=== PATIENT | female | born 1955 | race Caucasian/White ===

== ENCOUNTER 2020-01-24 14:20 | Inpatient (IN) ==
[2020-01-25] MEDS: *HR* Amiodarone 200 MG TABLET PO SCH (20:42)
[2020-01-26 05:40] LABS: Basophils # 0.1 K/mcL (0.0-0.2); Basophils % 0.9 %; Eosinophils # 0.1 K/mcL (0.0-0.6); Eosinophils % 1.3 %; Hematocrit 30.4 % (35.3-44.9); Hemoglobin 9.5 g/dL (11.5-15.4); Immature Granulocytes % 2.2 % (0-4); Lymphocytes # 1.6 K/mcL (0.6-4.6); Lymphocytes % 14.9 %; Mean Corpuscular HGB Conc 31.3 g/dL (31.6-35.5); Mean Corpuscular Hemoglobin 31.6 pg (28.0-33.3); Mean Platelet Volume 8.9 fL (9.4-12.4); Monocytes % 9.5 %; Neutrophils # 7.6 K/mcL (1.6-8.9); Platelet Count 451 K/mcL (140-400); Red Blood Count 3.01 M/mcL (3.82-4.97); Red Cell Distribution Width 13.2 % (11.5-14.5); Segmented Neutrophils % 71.2 %; White Blood Count 10.6 K/mcL (4.3-11.1)
[2020-01-26 05:52] LABS: BUN/Creatinine Ratio 26 (6-26); Blood Urea Nitrogen 20 mg/dL (8-23); Calcium 8.5 mg/dL (8.6-10.3); Carbon Dioxide 25 mEq/L (23-29); Chloride 104 mEq/L (98-107); Glucose 102 mg/dL (70-105); Osmolality,Calculated 285 (280-300); Potassium 4.1 mEq/L (3.5-5.1); Sodium 136 mEq/L (136-145); eGFR For African Americans > 60 (> 60); eGFR For Non-African Americans > 60 (> 60)
[2020-01-26] MEDS: Aspirin Enteric Coated 81 MG Tablet PO SCH (08:08)
[2020-01-26] MEDS: *HR* Amiodarone 200 MG TABLET PO SCH ×2 (08:08→20:19)
[2020-01-26] MEDS ORDERED: Furosemide 20 MG TABLET PO SCH (09:00)
[2020-01-27] MEDS: Aspirin Enteric Coated 81 MG Tablet PO SCH (07:55)
[2020-01-27] MEDS: *HR* Amiodarone 200 MG TABLET PO SCH ×2 (07:55→21:58)
[2020-01-28] MEDS: Aspirin Enteric Coated 81 MG Tablet PO SCH (10:06)
[2020-01-28] MEDS: *HR* Amiodarone 200 MG TABLET PO SCH ×2 (10:06→19:52)
[2020-01-29 06:21] LABS: Basophils # 0.1 K/mcL (0.0-0.2); Basophils % 0.8 %; Eosinophils # 0.1 K/mcL (0.0-0.6); Eosinophils % 0.8 %; Hematocrit 30.9 % (35.3-44.9); Hemoglobin 9.8 g/dL (11.5-15.4); Immature Granulocytes % 1.2 % (0-4); Lymphocytes # 1.4 K/mcL (0.6-4.6); Lymphocytes % 15.7 %; Mean Corpuscular HGB Conc 31.7 g/dL (31.6-35.5); Mean Corpuscular Hemoglobin 31.4 pg (28.0-33.3); Monocytes # 0.9 K/mcL (0.0-1.3); Monocytes % 10.6 %; Neutrophils # 6.1 K/mcL (1.6-8.9); Platelet Count 443 K/mcL (140-400); Red Blood Count 3.12 M/mcL (3.82-4.97); Segmented Neutrophils % 70.9 %; White Blood Count 8.6 K/mcL (4.3-11.1)
[2020-01-29 06:28] LABS: BUN/Creatinine Ratio 25 (6-26); Blood Urea Nitrogen 17 mg/dL (8-23); Calcium 8.6 mg/dL (8.6-10.3); Carbon Dioxide 25 mEq/L (23-29); Chloride 102 mEq/L (98-107); Glucose 105 mg/dL (70-105); Osmolality,Calculated 280 (280-300); Potassium 4.1 mEq/L (3.5-5.1); Sodium 134 mEq/L (136-145); eGFR For African Americans > 60 (> 60); eGFR For Non-African Americans > 60 (> 60)
[2020-01-29] MEDS: *HR* Amiodarone 200 MG TABLET PO SCH ×2 (08:52→20:54)
[2020-01-29] MEDS: Aspirin Enteric Coated 81 MG Tablet PO SCH (08:52)
[2020-01-30] MEDS: *HR* Amiodarone 200 MG TABLET PO SCH ×2 (09:29→19:37)
[2020-01-30] MEDS: Aspirin Enteric Coated 81 MG Tablet PO SCH (09:29)
[2020-01-31] MEDS: Acetaminophen 325 MG TABLET PO PRN (03:04)
[2020-01-31] MEDS: Aspirin Enteric Coated 81 MG Tablet PO SCH (08:27)
[2020-01-31] MEDS: *HR* Amiodarone 200 MG TABLET PO SCH ×2 (08:27→20:13)
[2020-02-01] MEDS: *HR* Amiodarone 200 MG TABLET PO SCH ×2 (08:05→20:33)
[2020-02-01] MEDS: Aspirin Enteric Coated 81 MG Tablet PO SCH (08:05)
[2020-02-01] MEDS: Furosemide 20 MG TABLET PO SCH (14:39)
[2020-02-01] MEDS ORDERED: *HR* Enoxaparin 100 MG/ML SYRINGE SQ ONE (18:08)
[2020-02-01] MEDS ORDERED: Isovue-370 500 ML BOTTLE IVP ONE (18:25)
[2020-02-01 19:08] LABS: Albumin 3.8 g/dL (3.5-5.7); BUN/Creatinine Ratio 22 (6-26); Blood Urea Nitrogen 17 mg/dL (8-23); Calcium 8.9 mg/dL (8.6-10.3); Carbon Dioxide 27 mEq/L (23-29); Chloride 101 mEq/L (98-107); Glucose 110 mg/dL (70-105); Osmolality,Calculated 284 (280-300); Phosphorous 4.3 mg/dL (2.7-4.5); Potassium 4.2 mEq/L (3.5-5.1); Sodium 136 mEq/L (136-145); eGFR For African Americans > 60 (> 60); eGFR For Non-African Americans > 60 (> 60)
[2020-02-02] MEDS: *HR* Enoxaparin 100 MG/ML SYRINGE SQ SCH ×2 (05:41→18:31)
[2020-02-02 05:42] LABS: Hematocrit 32.4 % (35.3-44.9); Hemoglobin 10.3 g/dL (11.5-15.4); Mean Corpuscular HGB Conc 31.8 g/dL (31.6-35.5); Mean Corpuscular Hemoglobin 31.5 pg (28.0-33.3); Mean Corpuscular Volume 99.1 fL (83.0-100.0); Mean Platelet Volume 8.9 fL (9.4-12.4); Platelet Count 385 K/mcL (140-400); Red Blood Count 3.27 M/mcL (3.82-4.97); Red Cell Distribution Width 12.8 % (11.5-14.5); White Blood Count 7.5 K/mcL (4.3-11.1)
[2020-02-02 05:47] LABS: INR 1.2; Prothrombin Time 14.1 Seconds (9.4-12.1)
[2020-02-02 05:49] LABS: Activated Partial Thrombo Time 35.6 Seconds (26.0-36.0)
[2020-02-02 05:55] LABS: Alanine Aminotransferase 35 Units/L (7-52); Albumin 3.5 g/dL (3.5-5.7); Albumin/Globulin Ratio 1.1 (1.1-2.2); Alkaline Phosphatase 52 Units/L (34-104); Aspartate Amino Transferase 20 Units/L (13-39); BUN/Creatinine Ratio 20 (6-26); Blood Urea Nitrogen 16 mg/dL (8-23); Calcium 8.9 mg/dL (8.6-10.3); Carbon Dioxide 27 mEq/L (23-29); Chloride 102 mEq/L (98-107); Globulin 3.1 g/dL (2.4-3.5); Glucose 93 mg/dL (70-105); Magnesium 2.3 mg/dL (1.6-2.6); Osmolality,Calculated 285 (280-300); Potassium 4.3 mEq/L (3.5-5.1); Sodium 137 mEq/L (136-145); Total Protein 6.6 g/dL (6.4-8.9); eGFR For African Americans > 60 (> 60); eGFR For Non-African Americans > 60 (> 60)
[2020-02-02 06:20] LABS: Bilirubin,Urine Negative (Negative); Blood,Urine Trace-intact (Negative); Clarity,Urine Clear (Clear); Color,Urine Yellow (Yellow); Glucose,Urine (UA) Normal (Normal); Ketones,Urine Negative (Negative); Leukocyte Esterase,Urine Negative (Negative); Nitrite,Urine Negative (Negative); Protein,Urine Negative (Neg-Trace); Specific Gravity,Urine 1.015 (1.010-1.025)
[2020-02-02 06:35] LABS: RBC,Urine 0-3 per hpf (0-3); Squamous Epithelial Cell,Urine Few per lpf (None-Few); WBC,Urine 0-3 per hpf (0-3)
[2020-02-02] MEDS: Aspirin Enteric Coated 81 MG Tablet PO SCH (09:20)
[2020-02-02] MEDS: Furosemide 20 MG TABLET PO SCH (09:21)
[2020-02-02] MEDS: *HR* Amiodarone 200 MG TABLET PO SCH ×2 (09:21→20:53)
[2020-02-02] MEDS ORDERED: Nitroglycerin 0.4 MG TAB.SUBL SL ONE (19:05)
[2020-02-02] MEDS: Mag Hydrox/Al Hydrox/Simeth 30 ML UDC PO PRN (20:53)
[2020-02-03] MEDS: *HR* Enoxaparin 100 MG/ML SYRINGE SQ SCH ×2 (05:21→18:01)
[2020-02-03] MEDS: Aspirin Enteric Coated 81 MG Tablet PO SCH (09:34)
[2020-02-03] MEDS: Acetaminophen 325 MG TABLET PO PRN (09:34)
[2020-02-03] MEDS: Furosemide 20 MG TABLET PO SCH (09:34)
[2020-02-03] MEDS: *HR* Amiodarone 200 MG TABLET PO SCH ×2 (09:34→22:27)
[2020-02-03] MEDS ORDERED: Ketorolac 30 MG/ML VIAL IVP ONE (17:47)
[2020-02-03] MEDS ORDERED: *HR* Warfarin 5 MG TABLET PO SCH (18:00)
[2020-02-04 05:21] LABS: INR 1.2; Prothrombin Time 13.9 Seconds (9.4-12.1)
[2020-02-04] MEDS: *HR* Enoxaparin 100 MG/ML SYRINGE SQ SCH ×2 (06:56→17:19)
[2020-02-04] MEDS: *HR* Amiodarone 200 MG TABLET PO SCH (09:32)
[2020-02-04] MEDS: Aspirin Enteric Coated 81 MG Tablet PO SCH (09:32)
[2020-02-04] MEDS: Furosemide 20 MG TABLET PO SCH (09:33)
[2020-02-04] MEDS ORDERED: Warfarin perPT PO PRN (18:00)
[2020-02-04] MEDS ORDERED: *HR* Warfarin 2.5 MG TABLET PO ONE (18:00)
[2020-02-05] MEDS: *HR* Enoxaparin 100 MG/ML SYRINGE SQ SCH ×2 (05:13→17:55)
[2020-02-05 06:16] LABS: INR 1.2
[2020-02-05] MEDS: Furosemide 20 MG TABLET PO SCH (08:46)
[2020-02-05] MEDS: Aspirin Enteric Coated 81 MG Tablet PO SCH (08:46)
[2020-02-05] MEDS: *HR* Amiodarone 200 MG TABLET PO SCH (08:46)
[2020-02-05] MEDS ORDERED: *HR* Warfarin 3 MG TABLET PO ONE (18:00)
[2020-02-06] MEDS: *HR* Enoxaparin 100 MG/ML SYRINGE SQ SCH ×2 (05:38→17:21)
[2020-02-06 05:47] LABS: Hematocrit 30.4 % (35.3-44.9); Hemoglobin 9.6 g/dL (11.5-15.4); Mean Corpuscular HGB Conc 31.6 g/dL (31.6-35.5); Mean Corpuscular Hemoglobin 30.6 pg (28.0-33.3); Mean Corpuscular Volume 96.8 fL (83.0-100.0); Mean Platelet Volume 9.1 fL (9.4-12.4); Platelet Count 358 K/mcL (140-400); Red Blood Count 3.14 M/mcL (3.82-4.97); Red Cell Distribution Width 12.8 % (11.5-14.5)
[2020-02-06 05:52] LABS: INR 1.2; Prothrombin Time 14.1 Seconds (9.4-12.1)
[2020-02-06 06:03] LABS: BUN/Creatinine Ratio 19 (6-26); Blood Urea Nitrogen 13 mg/dL (8-23); Calcium 8.7 mg/dL (8.6-10.3); Carbon Dioxide 26 mEq/L (23-29); Chloride 104 mEq/L (98-107); Glucose 95 mg/dL (70-105); Magnesium 2.6 mg/dL (1.6-2.6); Osmolality,Calculated 284 (280-300); Potassium 3.9 mEq/L (3.5-5.1); Sodium 137 mEq/L (136-145); eGFR For African Americans > 60 (> 60); eGFR For Non-African Americans > 60 (> 60)
[2020-02-06] MEDS: Aspirin Enteric Coated 81 MG Tablet PO SCH (08:42)
[2020-02-06] MEDS: *HR* Amiodarone 200 MG TABLET PO SCH (08:42)
[2020-02-06] MEDS: Furosemide 20 MG TABLET PO SCH (09:18)
[2020-02-06] MEDS ORDERED: *HR* Warfarin 5 MG TABLET PO ONE (18:00)
[2020-02-07] MEDS: Acetaminophen 325 MG TABLET PO PRN (05:18)
[2020-02-07] MEDS: *HR* Enoxaparin 100 MG/ML SYRINGE SQ SCH ×2 (05:18→16:27)
[2020-02-07 05:38] LABS: INR 1.3; Prothrombin Time 14.4 Seconds (9.4-12.1)
[2020-02-07] MEDS: *HR* Amiodarone 200 MG TABLET PO SCH (08:01)
[2020-02-07] MEDS: Furosemide 20 MG TABLET PO SCH (08:01)
[2020-02-07] MEDS: Aspirin Enteric Coated 81 MG Tablet PO SCH (12:24)
[2020-02-07] MEDS ORDERED: *HR* Warfarin 5 MG TABLET PO ONE (18:00)
[2020-02-08] MEDS: *HR* Enoxaparin 100 MG/ML SYRINGE SQ SCH ×2 (06:07→17:20)
[2020-02-08 07:18] LABS: INR 1.4
[2020-02-08] MEDS: *HR* Amiodarone 200 MG TABLET PO SCH (10:04)
[2020-02-08] MEDS: Furosemide 20 MG TABLET PO SCH (10:04)
[2020-02-08] MEDS: Aspirin Enteric Coated 81 MG Tablet PO SCH (10:04)
[2020-02-08] MEDS ORDERED: *HR* Warfarin 7.5 MG TABLET PO ONE (18:00)
[2020-02-09] MEDS: *HR* Enoxaparin 100 MG/ML SYRINGE SQ SCH ×2 (04:44→16:46)
[2020-02-09 06:49] LABS: INR 1.7; Prothrombin Time 19.1 Seconds (9.4-12.1)
[2020-02-09] MEDS: *HR* Amiodarone 200 MG TABLET PO SCH (07:48)
[2020-02-09] MEDS: Furosemide 20 MG TABLET PO SCH (07:48)
[2020-02-09] MEDS: Aspirin Enteric Coated 81 MG Tablet PO SCH (07:48)
[2020-02-09] MEDS: Mag Hydrox/Al Hydrox/Simeth 30 ML UDC PO PRN ×2 (13:59→18:39)
[2020-02-09] MEDS: Nystatin Cream 15 GM TUBE TP SCH ×2 (16:46→20:53)
[2020-02-09] MEDS ORDERED: *HR* Warfarin 5 MG TABLET PO ONE (18:00)
[2020-02-10] MEDS: *HR* Enoxaparin 100 MG/ML SYRINGE SQ SCH ×2 (05:11→17:21)
[2020-02-10 05:39] LABS: INR 1.6; Prothrombin Time 18.3 Seconds (9.4-12.1)
[2020-02-10] MEDS: Furosemide 20 MG TABLET PO SCH (09:43)
[2020-02-10] MEDS: Nystatin Cream 15 GM TUBE TP SCH ×3 (09:43→21:12)
[2020-02-10] MEDS: *HR* Amiodarone 200 MG TABLET PO SCH (09:43)
[2020-02-10] MEDS: Aspirin Enteric Coated 81 MG Tablet PO SCH (09:43)
[2020-02-10] MEDS ORDERED: *HR* Warfarin 7.5 MG TABLET PO ONE (18:00)
[2020-02-11] MEDS: *HR* Enoxaparin 100 MG/ML SYRINGE SQ SCH ×2 (05:08→18:03)
[2020-02-11 05:42] LABS: INR 1.9; Prothrombin Time 21.4 Seconds (9.4-12.1)
[2020-02-11] MEDS: *HR* Amiodarone 200 MG TABLET PO SCH (08:50)
[2020-02-11] MEDS: Aspirin Enteric Coated 81 MG Tablet PO SCH (08:51)
[2020-02-11] MEDS: Furosemide 20 MG TABLET PO SCH (08:51)
[2020-02-11] MEDS: Nystatin Cream 15 GM TUBE TP SCH ×3 (08:58→21:10)
[2020-02-11] MEDS ORDERED: *HR* Warfarin 5 MG TABLET PO ONE (18:00)
[2020-02-12] MEDS: *HR* Enoxaparin 100 MG/ML SYRINGE SQ SCH (05:09)
[2020-02-12 07:35] LABS: INR 2.4; Prothrombin Time 26.9 Seconds (9.4-12.1)
[2020-02-12] MEDS: Aspirin Enteric Coated 81 MG Tablet PO SCH (08:43)
[2020-02-12] MEDS: *HR* Amiodarone 200 MG TABLET PO SCH (08:44)
[2020-02-12] MEDS: Furosemide 20 MG TABLET PO SCH (08:44)
[2020-02-12] MEDS: Nystatin Cream 15 GM TUBE TP SCH ×3 (08:48→20:38)
[2020-02-12] MEDS ORDERED: *HR* Warfarin 5 MG TABLET PO ONE (18:00)
[2020-02-13 05:15] LABS: INR 2.2; Prothrombin Time 25.1 Seconds (9.4-12.1)
[2020-02-13] MEDS: Aspirin Enteric Coated 81 MG Tablet PO SCH (09:02)
[2020-02-13] MEDS: Nystatin Cream 15 GM TUBE TP SCH ×3 (09:02→21:28)
[2020-02-13] MEDS: *HR* Amiodarone 200 MG TABLET PO SCH (09:02)
[2020-02-13] MEDS: Furosemide 20 MG TABLET PO SCH (09:02)
[2020-02-13] MEDS ORDERED: *HR* Warfarin 7.5 MG TABLET PO ONE (18:00)
[2020-02-14 05:49] LABS: INR 2.3; Prothrombin Time 25.6 Seconds (9.4-12.1)
[2020-02-14] MEDS: Aspirin Enteric Coated 81 MG Tablet PO SCH (08:30)
[2020-02-14] MEDS: *HR* Amiodarone 200 MG TABLET PO SCH (08:31)
[2020-02-14] MEDS: Furosemide 20 MG TABLET PO SCH (08:31)
[2020-02-14] MEDS: Nystatin Cream 15 GM TUBE TP SCH ×3 (08:37→20:39)
[2020-02-14] MEDS ORDERED: *HR* Warfarin 3 MG TABLET PO ONE (18:00)
[2020-02-15 05:38] LABS: Hematocrit 32.6 % (35.3-44.9); Hemoglobin 10.3 g/dL (11.5-15.4); Mean Corpuscular HGB Conc 31.6 g/dL (31.6-35.5); Mean Corpuscular Hemoglobin 30.6 pg (28.0-33.3); Mean Corpuscular Volume 96.7 fL (83.0-100.0); Mean Platelet Volume 8.9 fL (9.4-12.4); Platelet Count 296 K/mcL (140-400); Red Blood Count 3.37 M/mcL (3.82-4.97); Red Cell Distribution Width 13.2 % (11.5-14.5)
[2020-02-15 05:42] LABS: INR 2.5
[2020-02-15 05:56] LABS: BUN/Creatinine Ratio 17 (6-26); Blood Urea Nitrogen 13 mg/dL (8-23); Calcium 8.8 mg/dL (8.6-10.3); Carbon Dioxide 26 mEq/L (23-29); Chloride 105 mEq/L (98-107); Glucose 98 mg/dL (70-105); Magnesium 2.6 mg/dL (1.6-2.6); Osmolality,Calculated 286 (280-300); Sodium 138 mEq/L (136-145); eGFR For African Americans > 60 (> 60); eGFR For Non-African Americans > 60 (> 60)
[2020-02-15] MEDS: Aspirin Enteric Coated 81 MG Tablet PO SCH (08:25)
[2020-02-15] MEDS: Furosemide 20 MG TABLET PO SCH (08:25)
[2020-02-15] MEDS: *HR* Amiodarone 200 MG TABLET PO SCH (08:25)
[2020-02-15] MEDS: Nystatin Cream 15 GM TUBE TP SCH ×3 (08:28→20:10)
[2020-02-15] MEDS ORDERED: *HR* Warfarin 3 MG TABLET PO ONE (18:00)
[2020-02-16 05:15] LABS: INR 2.8; Prothrombin Time 32.2 Seconds (9.4-12.1)
[2020-02-16] MEDS: Furosemide 20 MG TABLET PO SCH (08:05)
[2020-02-16] MEDS: *HR* Amiodarone 200 MG TABLET PO SCH (08:05)
[2020-02-16] MEDS: Aspirin Enteric Coated 81 MG Tablet PO SCH (08:05)
[2020-02-16] MEDS: Nystatin Cream 15 GM TUBE TP SCH ×3 (08:07→21:44)
[2020-02-16] MEDS ORDERED: *HR* Warfarin 3 MG TABLET PO ONE (18:00)
[2020-02-17 06:04] LABS: INR 2.7; Prothrombin Time 30.4 Seconds (9.4-12.1)
[2020-02-17] MEDS: *HR* Amiodarone 200 MG TABLET PO SCH (09:02)
[2020-02-17] MEDS: Aspirin Enteric Coated 81 MG Tablet PO SCH (09:02)
[2020-02-17] MEDS: Nystatin Cream 15 GM TUBE TP SCH ×3 (09:02→20:37)
[2020-02-17] MEDS: Furosemide 20 MG TABLET PO SCH (09:02)
[2020-02-17] MEDS ORDERED: *HR* Warfarin 5 MG TABLET PO ONE (18:00)
[2020-02-18 05:29] LABS: INR 2.5; Prothrombin Time 28.5 Seconds (9.4-12.1)
[2020-02-18] MEDS: Furosemide 20 MG TABLET PO SCH (08:04)
[2020-02-18] MEDS: Aspirin Enteric Coated 81 MG Tablet PO SCH (08:04)
[2020-02-18] MEDS: *HR* Amiodarone 200 MG TABLET PO SCH (08:04)
[2020-02-18] MEDS: Nystatin Cream 15 GM TUBE TP SCH ×3 (08:05→21:38)
[2020-02-18] MEDS ORDERED: *HR* Warfarin 3 MG TABLET PO ONE (18:00)
[2020-02-18] MEDS: Acetaminophen 325 MG TABLET PO PRN (21:36)
[2020-02-19 05:30] LABS: INR 2.1; Prothrombin Time 23.8 Seconds (9.4-12.1)
[2020-02-19 07:49] VITALS: BP 123/82
[2020-02-19] MEDS: Aspirin Enteric Coated 81 MG Tablet PO SCH (08:41)
[2020-02-19] MEDS: Nystatin Cream 15 GM TUBE TP SCH (08:41)
[2020-02-19] MEDS: *HR* Amiodarone 200 MG TABLET PO SCH (08:41)
[2020-02-19] MEDS: Furosemide 20 MG TABLET PO SCH (08:41)
== END 2020-02-19 10:25 | disposition home or self-care (01) | DRG 57 ==
LOC: INPGRE 01-25 12:18
PROVIDERS: ADMIT Family Medicine; ATTEND Family Medicine